=== PATIENT | male | born 1950 | race Caucasian/White ===

== ENCOUNTER 2018-11-07 08:30 | Inpatient (IN) | payer MEDICARE | END 2018-11-12 15:55 | disposition home or self-care (01) | LOC: EDH 08:30 → 3DH 11:20 | PROC: B54NZZZ Ultrasonography of Left Upper Extremity Veins (ICD-10-PCS; principal; ~2018-11-07) | DX: A41.9 Sepsis, unspecified organism (principal); I82.B12 Acute embolism and thrombosis of left subclavian vein; Z95.0 Presence of cardiac pacemaker; I25.10 Atherosclerotic heart disease of native coronary artery without angina pectoris; Z85.72 Personal history of non-Hodgkin lymphomas; Z68.34 Body mass index [BMI] 34.0-34.9, adult; Z96.649 Presence of unspecified artificial hip joint; C88.0 Waldenstrom macroglobulinemia ==

== ENCOUNTER 2020-01-07 13:15 | Emergency (ER) | payer MEDICARE ==
[~2020-01-07 13:15] MED LIST: MAGN400C PO
[2020-01-07 13:26] LABS: BASOPHILS % (AUTO) 0.5 % (0.0-5.0); HEMATOCRIT 40.9 % (42-54); LYMPHOCYTES % (AUTO) 17.5 % (21.0-51.0); MEAN CORPUSCULAR HEMOGLOBIN 32.7 pg (27.0-33.0); MONOCYTES % (AUTO) 12.6 % (3.0-13.0); NUCLEATED RED BLOOD CELLS 0.1 % (0.0-0.19); PLATELET COUNT (AUTO) 210 K/uL (130-400); RED BLOOD CELL COUNT(AUTO) 4.13 MIL/uL (4.50-6.20); RED CELL DISTRIBUTION WIDTH 16.2 % (11.0-15.5); WHITE BLOOD COUNT (AUTO) 13.8 K/uL (4.8-10.8)
[2020-01-07] MEDS ORDERED: ASPIRIN 325 MG TABLET ONE (13:30)
[2020-01-07 13:37] LABS: POTASSIUM 4.5 mmol/L (3.5-5.1)
[2020-01-07 13:39] LABS: INR 0.96 (0.85-1.15); PARTIAL THROMBOPLASTIN TIME 28.2 SEC (26.3-35.5); PROTHROMBIN TIME 10.4 SEC (9.6-11.6)
[2020-01-07 13:42] LABS: ALBUMIN 3.2 g/dL (3.5-5.0); BILIRUBIN,TOTAL 0.3 mg/dL (0.2-1.0); TOTAL PROTEIN, SERUM 7.3 g/dL (6.0-8.3)
[2020-01-07] MEDS ORDERED: SODIUM CHLORIDE 0.9% 1000ML 1,000 ML IV ONE (15:24)
[2020-01-07] MEDS ORDERED: IOHEXOL-350 75 ML VIAL IV ONE (15:36)
[2020-01-08] MEDS ORDERED: SERT50TA12 PO (13:27)
[2020-01-08] MEDS ORDERED: APIX5TAB PO (13:27)
== END 2020-01-07 17:20 | disposition home or self-care (01) ==
LOC: EDH 13:15
DX: M62.830 Muscle spasm of back (principal); I25.10 Atherosclerotic heart disease of native coronary artery without angina pectoris
CPT/HCPCS: 36415; 71045; 71275; 80053; 82550; 84484; 85025; 85610; 85730; 93005; 99285; J7030; Q9967

== ENCOUNTER 2020-01-08 09:18 | Inpatient (IN) | payer MEDICARE ==
[~2020-01-08] VITALS: Ht 188 cm; Wt 115.1 kg
[2020-01-08 09:35] LABS: BASOPHILS % (AUTO) 0.6 % (0.0-5.0); EOSINOPHILS % (AUTO) 7.7 % (0.0-8.0); HEMATOCRIT 42.1 % (42-54); LYMPHOCYTES % (AUTO) 11.4 % (21.0-51.0); MEAN CORPUSCULAR HEMOGLOBIN 32.8 pg (27.0-33.0); MEAN CORPUSCULAR HGB CONC 33.3 g/dL (32.0-36.0); MEAN CORPUSCULAR VOLUME 98.6 fL (79-99); MONOCYTES % (AUTO) 12.4 % (3.0-13.0); NEUTROPHILS % (AUTO) 67.5 % (40.0-77.0); NUCLEATED RED BLOOD CELLS 0.1 % (0.0-0.19); PLATELET COUNT (AUTO) 214 K/uL (130-400); RED BLOOD CELL COUNT(AUTO) 4.27 MIL/uL (4.50-6.20); RED CELL DISTRIBUTION WIDTH 16.1 % (11.0-15.5); WHITE BLOOD COUNT (AUTO) 14.9 K/uL (4.8-10.8)
[2020-01-08 09:45] LABS: CREATININE 0.9 mg/dL (0.5-1.5); POTASSIUM 4.3 mmol/L (3.5-5.1)
[2020-01-08 09:49] LABS: ALBUMIN 3.3 g/dL (3.5-5.0); BILIRUBIN,TOTAL 0.2 mg/dL (0.2-1.0); TOTAL PROTEIN, SERUM 7.5 g/dL (6.0-8.3)
[2020-01-08] MEDS ORDERED: MORPHINE SULFATE 4 MG/1ML SYG ONE (09:54)
[2020-01-08] MEDS ORDERED: ZOSYN 3.375GM+NS 50ML 50 ML IV ONE (11:35)
[2020-01-08 12:00] VITALS: BP 126/62
[2020-01-08] MEDS: ZOSYN 3.375GM+NS 50ML 50 ML IV SCH ×2 (12:00→22:04)
[2020-01-08] MEDS ORDERED: ONDANSETRON HCL 4 MG/2 ML VIAL IVP PRN (12:00)
[2020-01-08] MEDS: VANCOMYCIN 1GM+NS 250ML 250 ML IV SCH (12:52)
[2020-01-08] MEDS: SODIUM CHLORIDE 0.9% 1000ML 1,000 ML IV SCH ×2 (12:52→22:06)
[2020-01-08] MEDS: MORPHINE SULFATE 2 MG/ML 1ML SYG IVP PRN ×3 (12:59→22:46)
[2020-01-08] MEDS ORDERED: APIX5TAB PO (13:27)
[2020-01-08] MEDS ORDERED: SERT50TA12 PO (13:27)
[2020-01-08] MEDS ORDERED: MORPHINE SULFATE 2 MG/ML 1ML SYG IVP SCH (15:00)
[2020-01-08 15:54] VITALS: BP 128/66
[2020-01-08 19:05] VITALS: BP 140/69
--- NOTE | 2020-01-08 21:15 | NUR ---
SPOKE WITH DR. BELTRAN VIA TELEPHONE, UPDATED ON STATUS. OBTAINED ORDER TO HAVE PAIN MED EVERY 3 HRS PRN, TELEMETRY ORDER AND CARDIOLOGY CONSULT. PATIENT AND SPOUSE MADE AWARE. WILL CONT TO MONITOR.
[2020-01-08] MEDS: APIXABAN 5 MG TABLET PO SCH (22:04)
[2020-01-08] MEDS: SERTRALINE HCL 50 MG TABLET PO SCH (22:04)
[2020-01-08 23:19] VITALS: BP 137/69
[2020-01-09 03:39] VITALS: BP 129/64
[2020-01-09] MEDS: MORPHINE SULFATE 2 MG/ML 1ML SYG IVP PRN ×5 (03:46→21:09)
[2020-01-09 06:10] LABS: BASOPHILS % (AUTO) 0.6 % (0.0-5.0); EOSINOPHILS % (AUTO) 7.5 % (0.0-8.0); HEMATOCRIT 39.7 % (42-54); LYMPHOCYTES % (AUTO) 13.1 % (21.0-51.0); MEAN CORPUSCULAR HEMOGLOBIN 32.7 pg (27.0-33.0); MEAN CORPUSCULAR HGB CONC 32.7 g/dL (32.0-36.0); MEAN CORPUSCULAR VOLUME 99.7 fL (79-99); NEUTROPHILS % (AUTO) 63.5 % (40.0-77.0); PLATELET COUNT (AUTO) 198 K/uL (130-400); RED BLOOD CELL COUNT(AUTO) 3.98 MIL/uL (4.50-6.20); RED CELL DISTRIBUTION WIDTH 15.9 % (11.0-15.5); WHITE BLOOD COUNT (AUTO) 16.3 K/uL (4.8-10.8)
[2020-01-09] MEDS: SODIUM CHLORIDE 0.9% 1000ML 1,000 ML IV SCH (06:15)
[2020-01-09] MEDS: ZOSYN 3.375GM+NS 50ML 50 ML IV SCH ×3 (06:15→20:33)
[2020-01-09 06:36] LABS: ALBUMIN 2.9 g/dL (3.5-5.0); BILIRUBIN,TOTAL 0.4 mg/dL (0.2-1.0); CREATININE 0.8 mg/dL (0.5-1.5); POTASSIUM 3.8 mmol/L (3.5-5.1); TOTAL PROTEIN, SERUM 6.9 g/dL (6.0-8.3)
[2020-01-09 07:35] VITALS: BP 133/63
[2020-01-09] MEDS: APIXABAN 5 MG TABLET PO SCH ×2 (08:19→20:33)
[2020-01-09 11:00] LABS: CREATINE KINASE, TOTAL 31 U/L (21-232); MYOGLOBIN 35 ng/mL (10-92); TROPONIN I < 0.04 ng/mL (0.00-0.06)
[2020-01-09 11:09] VITALS: BP 138/67
[2020-01-09] MEDS: VANCOMYCIN 1GM+NS 250ML 250 ML IV SCH (12:03)
[2020-01-09 14:59] LABS: CREATINE KINASE, TOTAL 35 U/L (21-232); MYOGLOBIN 34 ng/mL (10-92); TROPONIN I < 0.04 ng/mL (0.00-0.06)
[2020-01-09 15:37] VITALS: BP 136/68
--- NOTE | 2020-01-09 16:20 | NUR ---
INITIAL SW met with patient. Patient lives with spouse, Leonor Mar, . winter. No home services. DME: [facility]. Patient is independent and drives. PCP is Dr. Ho. Pharmacy is [facility] located on [facility] in [place]. DCP is home. Addendum: 01/09/20 at 1622 by STEVEN PIERCE SS Amended: Links added.
[2020-01-09 19:00] VITALS: BP 135/65
[2020-01-09] MEDS: SERTRALINE HCL 50 MG TABLET PO SCH (20:33)
[2020-01-10] VITALS (7 sets, daily range): BP systolic 126–150; BP diastolic 58–72
[2020-01-10] MEDS: SODIUM CHLORIDE 0.9% 1000ML 1,000 ML IV SCH ×4 (00:36→21:58)
[2020-01-10] MEDS: MORPHINE SULFATE 2 MG/ML 1ML SYG IVP PRN ×5 (00:37→16:52)
[2020-01-10] MEDS: ZOSYN 3.375GM+NS 50ML 50 ML IV SCH ×3 (04:02→20:09)
[2020-01-10] MEDS: APIXABAN 5 MG TABLET PO SCH ×2 (09:41→20:10)
[2020-01-10] MEDS: VANCOMYCIN 1GM+NS 250ML 250 ML IV SCH (12:28)
[2020-01-10] MEDS ORDERED: SODIUM CHLORIDE 0.9% IV SCH (12:30)
[2020-01-10] MEDS ORDERED: DEXAMETHASONE IV SCH (12:30)
[2020-01-10] MEDS: PHARMACY COMMUNICATION MISC SCH ×2 (13:15→21:15)
--- NOTE | 2020-01-10 14:49 | NUR ---
nurse spoke with elizabeth at dr. hurd's office. no new orders. awaiting reply
[2020-01-10] MEDS: HYDROCODONE/ACETAMINOPHEN 5/325 MG TAB PO PRN ×2 (17:52→21:57)
[2020-01-10] MEDS ORDERED: LIDOCAINE 5% TOPICAL PATCH TP ONE (19:06)
[2020-01-10] MEDS: SERTRALINE HCL 50 MG TABLET PO SCH (20:10)
[2020-01-11 04:00] VITALS: BP 135/64
[2020-01-11] MEDS: ZOSYN 3.375GM+NS 50ML 50 ML IV SCH ×3 (04:07→21:29)
[2020-01-11] MEDS: PHARMACY COMMUNICATION MISC SCH ×2 (05:15→12:19)
[2020-01-11] MEDS: LIDOCAINE 5% TOPICAL PATCH TP SCH (09:00)
[2020-01-11] MEDS: HYDROCODONE/ACETAMINOPHEN 5/325 MG TAB PO PRN ×4 (09:19→21:29)
[2020-01-11] MEDS: APIXABAN 5 MG TABLET PO SCH ×2 (09:19→21:29)
[2020-01-11] MEDS: MAGNESIUM HYDROXIDE 30 ML/UDCUP PO SCH (09:20)
[2020-01-11] MEDS: SODIUM CHLORIDE 0.9% 1000ML 1,000 ML IV SCH ×2 (10:00→20:00)
[2020-01-11] MEDS: MORPHINE SULFATE 2 MG/ML 1ML SYG IVP PRN (10:02)
[2020-01-11 12:09] VITALS: BP 138/80
[2020-01-11] MEDS: VANCOMYCIN 1GM+NS 250ML 250 ML IV SCH (12:14)
[2020-01-11] MEDS ORDERED: DEXAMETHASONE 10MG/ML 1ML VIAL 0 MG in SODIUM CHLORIDE 0.9% 50 ML IV SCH (12:30)
[2020-01-11] MEDS ORDERED: PHARMACY COMMUNICATION MISC SCH (12:45)
[2020-01-11] MEDS ORDERED: IOHEXOL-350 50ML VIAL IV ONE (14:05)
[2020-01-11] MEDS: DEXAMETHASONE SOD PHOSPHATE 4 MG/ML 1ML VIAL IVP SCH ×2 (14:44→21:28)
[2020-01-11 16:00] VITALS: BP 117/63
[2020-01-11 19:52] VITALS: BP 124/62
[2020-01-11] MEDS: SERTRALINE HCL 50 MG TABLET PO SCH (21:28)
[2020-01-11 23:18] VITALS: BP 133/68
[2020-01-12 03:18] VITALS: BP 108/60
[2020-01-12] MEDS: DEXAMETHASONE SOD PHOSPHATE 4 MG/ML 1ML VIAL IVP SCH ×3 (05:49→12:13)
[2020-01-12] MEDS: ZOSYN 3.375GM+NS 50ML 50 ML IV SCH ×2 (05:49→12:12)
[2020-01-12] MEDS: SODIUM CHLORIDE 0.9% 1000ML 1,000 ML IV SCH (06:00)
[2020-01-12 07:44] VITALS: BP 124/60
[2020-01-12] MEDS: MAGNESIUM HYDROXIDE 30 ML/UDCUP PO SCH (08:26)
[2020-01-12] MEDS: LIDOCAINE 5% TOPICAL PATCH TP SCH (08:26)
[2020-01-12] MEDS: APIXABAN 5 MG TABLET PO SCH (08:29)
[2020-01-12 10:37] VITALS: BP 120/61
[2020-01-12] MEDS: VANCOMYCIN 1GM+NS 250ML 250 ML IV SCH (12:12)
--- NOTE | 2020-01-12 14:50 | NUR ---
1417 patient received BPCI Letter, at bedside. I explained that Magdalene BPCI Coordinator will be calling them withing 90 days to follow up with patient
== END 2020-01-12 15:32 | disposition home or self-care (01) | DRG 872 ==
LOC: EDH 09:18 → 3CH 11:10
PROVIDERS: ADMIT Internal Medicine Hematology & Oncology; ATTEND Internal Medicine Hematology & Oncology
DX: A41.9 Sepsis, unspecified organism (principal); E80.1 Porphyria cutanea tarda; C85.90 Non-Hodgkin lymphoma, unspecified, unspecified site; C88.0 Waldenstrom macroglobulinemia; M47.22 Other spondylosis with radiculopathy, cervical region; G62.9 Polyneuropathy, unspecified; I25.10 Atherosclerotic heart disease of native coronary artery without angina pectoris; Z79.01 Long term (current) use of anticoagulants; Z86.718 Personal history of other venous thrombosis and embolism; Z87.891 Personal history of nicotine dependence; Z95.0 Presence of cardiac pacemaker; Z90.81 Acquired absence of spleen
CPT/HCPCS: 36415; 70470; 71045; 71275; 72125; 72131; 80053; 82550; 83605; 83874; 84145; 84484; 85025; 85610; 85730; 87040; 93005; 93306; 93971; 97039; G0378; J1100; J2270; J2543; J3370; J7030; Q9967

== ENCOUNTER 2024-12-28 04:21 | Emergency (ER) | payer MEDICARE ==
[~2024-12-28] VITALS: Ht 188 cm; Wt 123.8 kg
[~2024-12-28 04:21] MED LIST changes: +APIX5TAB PO; +CALC-1038 PO; +DILT180C89 PO; +DOCU50CA13 PO; +ESOM40CA PO; +LEVE-43 PO; +LEVE250T PO; +LEVO750T40 PO; +MAGN300C PO; -MAGN400C PO; +MELO-106 PO; +METO75TA PO; +MULT-1082 PO; +SERT-439 PO
[2024-12-28] MEDS ORDERED: DICL20GE TP (04:50)
--- NOTE | 2024-12-28 04:51 | ERN ---
General Chief Complaint: Wrist Pain/Injury Stated Complaint: C/O PAIN WITH SWELLING TO RT WRIST Time Seen by MD: 04:27 Source: patient History of Present Illness Initial Comments PATIENT IS A 74-YEAR-OLD MALE COMING IN TO BE EVALUATED FOR RIGHT WRIST PAIN. PER PATIENT THE PAIN HAS BEEN ONGOING FOR A COUPLE OF DAYS. HE ALSO STATES THAT HE HAD SIMILAR DISCOMFORT FOR AND WAS BLAMING IT ON HIS ARTHRITIS. PATIENT HAS NOTICED THAT HE WAS USING HIS WRIST MORE TO PUSH OFF WHILE GETTING UP FROM A SITTING POSITION. Allergies: Coded Allergies: No Known Drug Allergies (Verified Allergy, Unknown, 12/15/14) Home Meds Active Scripts Levofloxacin (Levofloxacin) 750 Mg Tablet, 750 MG PO DAILY for 10 Days, #10 TAB Prov:ANIYAH MANJARREZ [employer] TECHNICIAN 10/23/22 Reported Medications Docusate Sodium (Stool Softener) 50 Mg Capsule, 50 MG PO BID, CAP 10/22/22 Multivits-Minerals/FA/Lycopene (One Daily For Men Tablet) 1 Each Tablet, 1 EACH PO DAILY, TAB 10/22/22 Magnesium Oxide/Mag Aa Chelate (Magnesium 300 mg Capsule) 300 Mg Capsule, 300 MG PO HS, CAP 10/22/22 Calcium Carbonate (Calcium) 500 Mg Tablet, 500 MG PO AM, TAB 10/22/22 Esomeprazole Magnesium (Nexium) 40 Mg Capsule.dr, 40 MG PO DAILY, CAP 10/22/22 Diltiazem HCl (Diltiazem 24Hr ER) 180 Mg Cap.er.24h, 1 CAP PO QDP 10/22/22 Meloxicam (Meloxicam) 7.5 Mg Tablet, 7.5 MG PO AM, TAB 10/22/22 Metoprolol Tartrate (Metoprolol Tartrate) 75 Mg Tablet, 75 MG PO BID, TAB 10/22/22 Levetiracetam (Keppra) 500 Mg Tablet, 500 MG PO HS for 30 Days, #60 TAB 0 Refills 10/22/22 Levetiracetam (Keppra) 250 Mg Tablet, 250 MG PO AM, TAB 10/22/22 Sertraline HCl (Sertraline HCl) 50 Mg Tablet, 50 MG PO HS, TAB 01/08/20 Apixaban (Eliquis) 5 Mg Tablet, 5 MG PO BID, TAB 01/08/20 Past Medical History Past Medical History: Arthritis Medical History Other: NONHODSKINS LYMPHOMA, LHERMITTE SYNDROME Past Surgical History: Cholecystectomy, Pacer/AICD, Other Surgical History Other: BACK SX; AORTIC VALVE REPLACEMENT Family History Family History: CAD, HTN Social History Social History: Negative, Lives with family ROS Dictation CONSTITUTIONAL: NO CHILLS, NO FEVER, NO WEAKNESS, NO DIAPHORESIS, NO MALAISE. HEAD/FACE: NO SIGNS OF TRAUMA. EENT: NO EYE PAIN, NO BLURRED VISION, NO TEARING, NO DOUBLE VISION, NO EAR PAIN, NO EAR DISCHARGE, NO NOSE PAIN, NO NASAL CONGESTION, NO THROAT PAIN, NO THROAT SWELLING, NO MOUTH PAIN. RESPIRATORY: NO COUGH, NO ORTHOPNEA, NO SOB, NO STRIDOR, NO WHEEZING. CARDIOVASCULAR: NO CHEST PAIN, NO EDEMA, NO PALPITATIONS, NO SYNCOPE. GASTROINTESTINAL/ABDOMINAL: NO ABDOMINAL PAIN, NO CONSTIPATION, NO DIARRHEA, NO NAUSEA, NO VOMITING. GENITOURINARY: NO ABNORMAL DISCHARGE, NO DYSURIA, NO FREQUENT URINATION, NO HEMATURIA. NO COMPLAINTS OF PAIN IN THE GENITALS. MUSCULOSKELETAL: NO BACK PAIN, NO GOUT, JOINT PAIN, JOINT SWELLING, NO MUSCLE PAIN, NO MUSCLE STIFFNESS, NO NECK PAIN. INTEGUMENTARY: NO CHANGE IN COLOR, NO CHANGE IN HAIR/NAILS, NO DRYNESS, NO LESION, NO LUMPS, NO RASH. NEUROLOGICAL/PSYCH: NO ANXIETY, NOT DEPRESSED, NO EMOTIONAL PROBLEM, NO HEADACHE, NO NUMBNESS, NO PRE-EXISTING DEFICIT, NO HISTORY OF SEIZURES, NO TREMORS, NO WEAKNESS. HEMATOLOGIC/LYMPHATIC: NOT ANEMIC, NO HISTORY OF BLOOD CLOTS, NO APPARENT BLEEDING, NO BRUISING, GLANDS NOT SWOLLEN. ALL SYSTEMS NEGATIVE, EXCEPT NOTED. Physical Exam Physical Exam Dictation VITAL SIGNS: REVIEWED. GENERAL APPEARANCE: ALERT, ORIENTED X3, NO ACUTE DISTRESS, OBESE. HEAD AND FACE: NON-TRAUMATIC. EYES: PERRL, PINK CONJUNCTIVAS, EYELID NO TRAUMA, ANTERIOR CHAMBER CLEAR. EARS: PINNAS INTACT AND NO SIGNS OF TRAUMA OR ERYTHEMA. EAR CANALS CLEAR AND NO DISCHARGE. TMS NO ERYTHEMA. NOSE: NO DISCHARGE, NO BLEEDING. OROPHARYNX: MOUTH NORMAL, TEETH NO CARIES, TONGUE PINK. PHARYNX CLEAR, NO ERYTHEMA. TONSILS NO EXUDATES, NO ABSCESSES NOTED. MUCOUS MEMBRANE MOIST. NECK: SUPPLE, NON-TENDER, NO THYROMEGALY, NO MASSES, NO JVD, NO BRUITS. BREAST: DEFERRED. CHEST: NO TENDERNESS, NO CREPITUS, NO PARADOXICAL MOVEMENT, NO RETRACTIONS. LUNGS: CLEAR, WELL-VENTILATED, SYMMETRIC, NO RALES, NO WHEEZING, NO RHONCHI, NO STRIDOR, GOOD BREATH SOUNDS BILATERALLY. HEART: REGULAR RATE, REGULAR RHYTHM, NO MURMUR, NO GALLOPS. VASCULAR: NO PERIPHERAL EDEMA. ABDOMEN: SOFT, POSITIVE BOWEL SOUNDS, NONDISTENDED, NO GUARDING, NONTENDER, NO REBOUND, NO MASSES NO HEPATOMEGALY, NO SPLENOMEGALY, NO YATES'S SIGN, NO HERNIAS. RECTAL: DEFERRED. GENITAL: DEFERRED. NEUROLOGICAL: NORMAL SPEECH, GROSS MOTOR FUNCTION INTACT, GROSS SENSORY FUNCTION INTACT. MUSCULOSKELETAL: NECK NONTENDER, FULL RANGE OF MOTION, BACK NONTENDER, FULL RANGE OF MOTION. EXTREMITIES: NONTENDER, FULL RANGE OF MOTION. RIGHT WRIST TENDERNESS TO PALPATION MILD SWELLING, PAIN ON FLEXION AND EXTENSION SKIN: COLOR PINK, DRY, NO TURGOR, NO RASH, NO LACERATIONS, NO ABRASIONS, NO CONTUSIONS. LYMPHATICS: DEFERRED. Results Laboratory and Microbiology Labs Reviewed?: Yes EKG/XRAY/US/CT/MRI X-RAY Comment X-RAY RIGHT WRIST-NAD MDM MDM: DIFFERENTIAL DIAGNOSIS: WRIST PAIN, FRACTURE DISTAL RADIAL, PATIENT IS A 74-YEAR-OLD MALE COMING IN TO BE EVALUATED FOR RIGHT WRIST PAIN. ON PHYSICAL EXAM THERE IS TENDERNESS TO PALPATION OF THE RIGHT WRIST. PAIN IS EXACERBATED WITH FLEXION AND EXTENSION. RIGHT WRIST PREFABRICATED SPLINT WAS PLACED X-RAY DID NOT DISCLOSE ACUTE FINDINGS. PATIENT WILL BE DISCHARGED IN ED Course Orders Procedure Category Date Status Time Wrist Comp 3+Vws Rt RAD 12/28/24 Taken 04:29 Vital Signs Date Time Temp Pulse Resp B/P (MAP) Pulse Ox O2 Delivery O2 Flow Rate FiO2 12/28/24 04:24 98.2 87 20 143/76 97 Room Air DX & DISP Disposition: Discharge Departure Impression: Primary Impression: Strain of wrist, right Additional Impression: Osteoarthritis of right wrist Condition: Stable Scripts Diclofenac Sodium (Voltaren Arthritis Pain) 1 % Gel..gram. 4 GM TP BID for 7 Days, #1 TUBE Prov: HU MANDUJANO MD 12/28/24 Additional Instructions: FOLLOW-UP WITH PRIMARY CARE PROVIDER IN 1 TO 2 DAYS. TAKE MEDICATIONS DIRECTED HERE IN THE EMERGENCY ROOM. OKAY TO CONTINUE HOME MEDICATIONS UNLESS OTHERWISE DISCUSSED DURING YOUR VISIT IN THE EMERGENCY ROOM TODAY. RETURN TO YOUR NEAREST EMERGENCY ROOM IF SYMPTOMS WORSEN OR IF THERE IS NO IMPROVEMENT. CALL 911 IF YOU NEED IMMEDIATE ASSISTANCE. TAKE TYLENOL [id number] NEEDED AND IF NO CONTRAINDICATIONS ARE PRESENT. INCREASE ORAL HYDRATION. A WOUND CULTURE OR URINE CULTURE WAS ORDERED HERE IN THE EMERGENCY ROOM DEPARTMENT PLEASE FOLLOW-UP WITH PRIMARY CARE PROVIDER AND ADVISE THEM TO GET REPEAT PORTS FROM OUR FACILITY. IF YOU HAD ANY NEDA WRAP/SPLINTS THAT WERE APPLIED HERE, PLEASE DO NOT REMOVE THEM UNTIL YOU SEE YOUR PRIMARY CARE OR SPECIALTY. REFERRALS: Referrals: PATRICIA BELTRAN MD (PCP) Time of Disposition: 04:50 HU MANDUJANO MD Dec 28, 2024 04:51
[2024-12-28] MEDS: ketOROlac 30MG VIAL (30MG/ML) IM ONE (05:04)
[2024-12-28 05:23] VITALS: BP 138/74; PULSE 80; RESP 18; TEMP 98.4; O2SAT 98
--- NOTE | 2024-12-28 12:38 | HMCIMG ---
WRIST COMP 3+VWS RT HISTORY: Wrist pain COMPARISON: None TECHNIQUE: 2 images of right wrist were obtained. FINDINGS: Radiocarpal joint space narrowing is seen. There is no acute displaced fracture or dislocation. Degenerative changes are seen. IMPRESSION: 1. Findings as described above.
== END 2024-12-28 05:24 | disposition home or self-care (01) ==
LOC: EDH 04:21
DX: S66.911A Strain of unspecified muscle, fascia and tendon at wrist and hand level, right hand, initial encounter (principal); M19.031 Primary osteoarthritis, right wrist; Z79.01 Long term (current) use of anticoagulants; Z79.899 Other long term (current) drug therapy; Z90.49 Acquired absence of other specified parts of digestive tract; Z95.2 Presence of prosthetic heart valve; Z95.810 Presence of automatic (implantable) cardiac defibrillator; X58.XXXA Exposure to other specified factors, initial encounter; Y93.89 Activity, other specified; Y92.89 Other specified places as the place of occurrence of the external cause; Y99.8 Other external cause status
CPT/HCPCS: 99283; 82948; 73110; 96372; J1885